=== PATIENT | male | born 1995 | race Caucasian/White ===

== ENCOUNTER 2023-12-25 05:00 | Day surgery (SDC) | payer MEDICAID ==
[~2023-12-25] VITALS: Ht 175.3 cm; Wt 110.4 kg
[2023-12-25] MEDS ORDERED: SIMETHICONE 40 MG/0.6 ML ML ONE (05:50)
[2023-12-25] MEDS ORDERED: MEPERIDINE 100 MG INJ. 100 MG/ML VIAL ONE (05:50)
[2023-12-25] MEDS ORDERED: MIDAZOLAM HCL 5 MG/5 ML VIAL ONE ×2 (05:51→07:23)
[2023-12-25] MEDS ORDERED: DIPHENHYDRAMINE INJ 50 MG/ML VIAL ONE (07:28)
[2023-12-25 08:58] VITALS: O2SAT 100
[2023-12-25 15:08] VITALS: PULSE 72; RESP 22
[2023-12-25 18:15] VITALS: BP_SYST 125
== END 2023-12-25 09:37 | disposition home or self-care (01) ==
LOC: SDS 05:00 → SMU 05:00 → SDS 09:37
PROVIDERS: ATTEND Internal Medicine Gastroenterology
DX: K92.1 Melena (principal); K29.50 Unspecified chronic gastritis without bleeding; B96.81 Helicobacter pylori [H. pylori] as the cause of diseases classified elsewhere; R19.4 Change in bowel habit; K21.9 Gastro-esophageal reflux disease without esophagitis; F41.9 Anxiety disorder, unspecified; F32.A Depression, unspecified; G43.909 Migraine, unspecified, not intractable, without status migrainosus; F90.9 Attention-deficit hyperactivity disorder, unspecified type; Z88.1 Allergy status to other antibiotic agents; Z79.899 Other long term (current) drug therapy
CPT/HCPCS: 87081; 36415; 45378; 43239; 88305; 88312; 88313; 99152; 99153; G0378; J1200; J2250; J2175